=== PATIENT | male | born 1940 | race Caucasian/White ===

== ENCOUNTER 2020-02-16 19:13 | Emergency (ER) | payer MEDICARE, OTHER, SELFPAY ==
--- NOTE | ~2020-02-16 | XR_ITS ---
EXAMINATION: XR chest 1V portable INDICATION: Edema, history of CVA TECHNIQUE: Portable AP chest at 1959 hours COMPARISON: None available FINDINGS: Cardiomegaly is noted. Diffuse interstitial and airspace opacities are present. There is el evation of the right hemidiaphragm. No pleural effusion or pneumothorax is identified. 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 IMPRESSION: 1. Cardiomegaly. 2. Diffuse lung disease which could reflect pneumonia and/or pulmonary edema. Reviewed, dictated and finalized at location A. TECH
[2020-02-16 19:14] VITALS: BP 125/73; PULSE 70; RESP 12; TEMP 36.4; O2SAT 97
--- NOTE | 2020-02-16 19:27 | PC.NURSE ---
hakan rn got ring off patients finger at this time. pt ring placed in blue bag and placed on pts clothes.
[2020-02-16 20:00] LABS: Basophils Percent Auto 0.4 % (0.2-1.2); Eosinophils Absolute Auto 0.3 K/mm3 (0-0.3); Eosinophils Percent Auto 3.8 % (0-4.4); Hematocrit 35.8 % (42.0-52.0); Hemoglobin 11.9 g/dL (14.0-18.0); Immature Granulocyte Absolute 0.03 K/mm3 (0.00-0.031); Immature Granulocyte Percent A 0.4 % (0-0.5); Lymphocytes Absolute Auto 1.15 K/mm3 (0.9-3.2); Lymphocytes Percent Auto 15.5 % (18.3-44.2); Mean Corpuscular HGB Conc 33.2 g/dl (32-36); Mean Corpuscular Hemoglobin 30.2 pg (26-34); Mean Corpuscular Volume 90.9 fl (80-100); Mean Platelet Volume 10.7 fl (7.4-10.4); Monocytes Absolute Auto 0.5 K/mm3 (0.1-0.6); Monocytes Percent Auto 6.1 % (2.6-8.5); Neutrophils Absolute Auto 5.5 K/mm3 (1.3-6.7); Neutrophils Percent Auto 73.8 % (45.5-73.1); Platelet Count Result 237 k/mm3 (150-375); Red Blood Count 3.94 M/mm3 (4.6-6.20); Red Cell Distribution Width 13.8 % (11.5-14.5); White Blood Count 7.4 K/mm3 (4.5-10.0)
--- NOTE | 2020-02-16 20:12 | ED.GENADULT ---
HPI - General Adult General Chief complaint: Extremity Problem,Nontraumatic Stated complaint: extremity swelling Time Seen by Provider: 02/16/20 19:28 History of Present Illness HPI narrative: Patient is a 79-year-old male who presents ER with edema to his left upper extremity. Reports its been slowly swelling over the last few weeks. Patient suffered a stroke a couple months ago that left him with minimal use of his left upper extremity. He has no redness or pain to the extremity. He was concerned because his wedding ring is now stuck on his finger he feels like he needs it removed. 7 no chest pain or shortness of breath. No orthopnea. No other complaints. Related Data Home Medications Medication Instructions Recorded Confirmed atenolol 50 mg PO DAILY 02/16/20 02/16/20 docusate sodium 100 mg PO DAILY 02/16/20 02/16/20 donepezil 10 mg PO HS 02/16/20 02/16/20 finasteride 5 mg PO DAILY 02/16/20 02/16/20 furosemide 40 mg PO BID 02/16/20 02/16/20 hydralazine 50 mg PO QID 02/16/20 02/16/20 omeprazole 20 mg PO DAILY 02/16/20 02/16/20 polyethylene glycol ea MISCELLANEOUS 02/16/20 potassium chloride 20 meq PO DAILY 02/16/20 02/16/20 sertraline 50 mg PO DAILY 02/16/20 02/16/20 simvastatin 20 mg PO DAILY 02/16/20 02/16/20 tamsulosin 0.4 mg PO HS 02/16/20 02/16/20 warfarin 5 mg PO DAILY 02/16/20 02/16/20 Allergies Allergy/AdvReac Type Severity Reaction Status Date / Time No Known Allergies Allergy Verified 02/16/20 19:54 Review of Systems Review of Systems: All systems reviewed & are unremarkable except as noted in HPI and below Constitutional: Constitutional: Denies chills, Denies fever(s) and Denies weakness Cardiovascular: Cardiovascular: Denies chest pain Respiratory: Respiratory: Denies cough, Denies dyspnea and Denies wheezing Musculoskeletal: Musculoskeletal: Denies arthralgias, Denies joint swelling and Denies muscle cramps Comments: Arm swelling Neurologic: Denies numbness and Reports weakness PMF Past Medical History Medical History (Updated 02/16/20 @ 23:34 by Ayad Ruiz MD) Atrial fibrillation BPH (benign prostatic hyperplasia) CVA (cerebral vascular accident) H/O: hypertension Hyperlipidemia Surgical History Surgical History (Updated 02/16/20 @ 20:17 by Ayad Ruiz MD) History of hernia repair Social History Social History (Updated 02/16/20 @ 20:18 by Ayad Ruiz MD) Living arrangements: senior care Additional living arrangements comments: [facility] Exam Narrative: Exam Narrative: GENERAL: Well-appearing, well-nourished, and in no acute distress. HEAD: Normocephalic, atraumatic. CHEST: Clear to auscultation. No respiratory distress. HEART: Irregular regular rate and rhythm. Normal peripheral pulses. ABDOMEN: Soft, nontender. EXTREMITIES: 1+ edema LUE, 2+BLE, no edema in RUE. NO redness/tenderness LUE. Chronic venous stasis changes bilateral lower extremities. SKIN: Warm, dry, no rash. NEURO: Alert and oriented x3. PSYCH: Normal mood and affect. Course Course Emergency Course: Elevated D-dimer but therapeutic INR. Patient has no shortness of breath and normal lung sounds. He is not wanting to stay in the hospital for an ultrasound to rule out DVT which I think is appropriate given that he is being treated adequately and I feel his edema is likely related to immobility due to his paralysis. I discussed case with the physician at [facility] Dr. Segovia. He feels comfortable with patient going back to the facility and can arrange an outpatient ultrasound as needed. Vital Signs Vital signs: Vital Signs Temperature 97.6 F 02/16/20 19:14 Pulse Rate 70 02/16/20 19:14 Respiratory Rate 12 02/16/20 19:14 Blood Pressure 125/73 02/16/20 19:14 Pulse Oximetry 97 02/16/20 19:14 Temperature 97.6 F 02/16/20 19:14 Pulse Rate 70 02/16/20 22:11 Respiratory Rate 18 02/16/20 22:11 Blood Pressure 130/75 02/16/20 22:11 Pulse Oximetry 95
[2020-02-16 20:13] LABS: Alanine Aminotransferase 28 U/L (4-50); Albumin Level 3.7 g/dL (3.5-5.1); Alkaline Phosphatase 88 U/L (38-126); Anion Gap 8 mmol/L (8-16); Aspartate Amino Transferase 35 U/L (17-59); Bilirubin,Total 0.4 mg/dL (0.2-1.3); Blood Urea Nitrogen 24 mg/dL (9-20); Calcium 9.4 mg/dL (8.4-10.2); Carbon Dioxide 34 mmol/L (22-30); Chloride 96 mmol/L (98-107); Estimated CRCL calculation 68 ml/min; Estimated Glomerular Filt Rate > 60; Glucose 146 mg/dL (75-110); Potassium 3.5 mmol/L (3.4-5.0); Sodium 138 mmol/L (137-145)
[2020-02-16 20:37] LABS: NT Pro B Type Natriuretic Pept 2120 PG/ML (5-100)
[2020-02-16 20:38] LABS: INR 2.5; Prothrombin Time 27.5 Seconds (11.1-14.7)
[2020-02-16 20:39] LABS: Partial Thromboplastin Time 55.7 SECONDS (22.3-36.8)
[2020-02-16 20:48] VITALS: BP 129/65; PULSE 78; RESP 20; O2SAT 96
[2020-02-16 21:28] VITALS: BP 134/79; PULSE 73; RESP 18; O2SAT 96
[2020-02-16 22:11] VITALS: BP 130/75; PULSE 70; RESP 18; O2SAT 95
[2020-02-16 23:00] VITALS: BP 157/91; PULSE 67; RESP 16; O2SAT 96
[2020-02-16 23:37] VITALS: BP 159/90; PULSE 67; RESP 17; O2SAT 96
[2020-02-17 01:20] VITALS: BP 138/85; PULSE 60; RESP 18; O2SAT 99
== END 2020-02-17 01:21 ==
PROVIDERS: Emergency Provider Emergency Medicine; PCP Family Medicine
DX: R60.9 Edema, unspecified (principal); I48.91 Unspecified atrial fibrillation; I69.964 Other paralytic syndrome following unspecified cerebrovascular disease affecting left non-dominant side; N40.0 Benign prostatic hyperplasia without lower urinary tract symptoms; I10 Essential (primary) hypertension; E78.5 Hyperlipidemia, unspecified; Z79.01 Long term (current) use of anticoagulants; I51.7 Cardiomegaly; R91.8 Other nonspecific abnormal finding of lung field
CPT/HCPCS: 36415; 71045; 80048; 80076; 83880; 85025; 85380; 85610; 85730; 99283

== ENCOUNTER 2020-08-13 13:44 | Outpatient (CLI) | payer MEDICARE, OTHER, SELFPAY ==
--- NOTE | ~2020-08-13 | CT_ITS ---
EXAMINATION: CT abdomen pelvis wo/w con DATE: 08/13/2020 14:49 INDICATION: Renal mass TECHNIQUE: Computed tomography (CT) of the abdomen and pelvis was performed without and with 100 mL O mnipaque-350 intravenous contrast. Automated exposure control and iterative reconstruction technique were employed. The dose-length product was 3141.48 mGy-cm. COMPARISON: None FINDINGS: Chronic eventration of the right hemidiaphragm. Small calcified nodules in the right lower lobe along with calcified right hilar and mediastinal lymph nodes consistent with old granulomatous disease. No pneumonia, pulmonary edema, pleural effusion or pneumothorax. Heart size is normal. Atherosclerotic coronary artery calcifications. Aortic valve calcification. No pericardial or pleural effusion. Bilat eral gynecomastia. Small sliding-type hiatal hernia. Liver, gallbladder, spleen, pancreas and bilater al adrenal glands are normal. There are bilateral renal cysts, the largest a 6.6 cm low-attenuation nonenhancing cyst with thin per ipheral partial rim calcification. There is a 2.4 cm complex nonenhancing proteinaceous/hemorrhagic c yst at the mid left kidney with intermediate attenuation of 43 HU on the precontrast images which zhou sures 41 HU on the postcontrast images. There are a few additional bilateral subcentimeter low-attenu ation nonenhancing renal cysts. No enhancing renal lesions identified. Mild to moderate diverticulosi s with sigmoid predominance and without adjacent inflammatory stranding to suggest acute diverticulit is. Small bowel and appendix are normal. Bladder is normal. No free intraperitoneal gas or fluid. No pathologically enlarged thoracic, abdominal or pelvic lympha denopathy. There is calcified atherosclerosis of the normal caliber aorta and many of the other arter ies. Antegrade intramedullary julissa and dynamic femoral neck compression screw fixation at the proximal right femur. Moderate thoracolumbar spondylosis. There are bridging osteophytes at multiple levels i n the spine, consistent with diffuse idiopathic skeletal hyperostosis (DISH). IMPRESSION: 1. Renal cysts including bilateral Bosniak 2 cysts measuring 6.6 cm with thin peripheral rim enhancem ent in the right kidney and 2.4 cm nonenhancing intermediate attenuation proteinaceous/hemorrhagic cy st in the left kidney. 2. Diverticulosis. 3. Small sliding-type hiatal hernia. Reviewed, dictated and finalized at location A. IMPRESSION: 1. Renal cysts including bilateral Bosniak 2 cysts measuring 6.6 cm with thin p eripheral rim enhancement in the right kidney and 2.4 cm nonenhancing intermedi ate attenuation proteinaceous/hemorrhagic cyst in the left kidney. 2. Diverticulosis. 3. Small sliding-type hiatal hernia.
[2020-08-13 14:26] LABS: Estimated Glomerular Filt Rate 45
== END 2020-08-13 13:45 | disposition home or self-care (01) ==
PROVIDERS: PCP Family Medicine; Visit Provider Urology
DX: N28.89 Other specified disorders of kidney and ureter (principal); N28.1 Cyst of kidney, acquired; K57.90 Diverticulosis of intestine, part unspecified, without perforation or abscess without bleeding; K44.9 Diaphragmatic hernia without obstruction or gangrene
CPT/HCPCS: 74178; Q9967

== ENCOUNTER 2021-01-13 20:06 | Emergency (ER) | payer MEDICARE, OTHER, MEDICAID, SELFPAY ==
--- NOTE | ~2021-01-13 | CT_ITS ---
EXAMINATION: CT brain wo con EXAM DATE: 01/13/2021 20:44 INDICATION: Generalized weakness. History of stroke. TECHNIQUE: Spiral CT of the head was performed without contrast. Axial, coronal and sagittal images were reviewed. The dose-length product (DLP) for this examination was 605.33 mGy-cm. The exposure w as tailored according to patient size, and iterative reconstruction (ASIR) was used as additional dos e reduction technique. There is no prior study for comparison. FINDINGS: There is no acute intraparenchymal hemorrhage. No evidence of intraparenchymal brain mass lesion. No evidence of acute infarction. Please note that initial head CT has limited sensitivity f or small or acute infarctions. There is moderate-sized old right occipital lobe infarction. There i s mild periventricular and subcortical hypodensity, nonspecific but probably related to small vessel ischemic disease. There is moderate prominence of the sulci and ventricles related to cerebral atro phy. There is intracranial carotid arteriosclerosis. There are no extra-axial collections. There is no mass effect or midline shift. The orbits are unremarkable. Soft tissue is unremarkable. The visualized sinuses and mastoid air cells are well aerated. IMPRESSION: 1. Old moderate-sized right occipital lobe infarction.. 2. Chronic age related findings. Reviewed, dictated and finalized at location A. FACTURING TEST ENGINEER
[2021-01-13 20:07] VITALS: BP 106/73; PULSE 95; RESP 20; TEMP 36.8; O2SAT 94
--- NOTE | 2021-01-13 20:20 | ECG_ITS ---
Measurements Intervals [place] Rate: 94 P: [place]: 0 QRS: -40 QRSD: 169 T: 141 QT: 389 QTc: 487 Interpretive Statements ATRIAL FIBRILLATION LEFT AXIS DEVIATION LEFT BUNDLE BRANCH BLOCK BASELINE ARTIFACT- I, II, III, AVR, V1 ABNORMAL ECG Electronically Signed On 01-14-2021 5:53:05 TEAR DOWN WORKER by Ashish Mckenna D.O.
[2021-01-13 20:32] LABS: Basophils Percent Auto 0.4 % (0.2-1.2); Eosinophils Absolute Auto 0.1 K/mm3 (0-0.3); Hematocrit 42.9 % (42.0-52.0); Hemoglobin 14.6 g/dL (14.0-18.0); Immature Granulocyte Absolute 0.11 K/mm3 (0.00-0.031); Lymphocytes Percent Auto 10.5 % (18.3-44.2); Mean Corpuscular Hemoglobin 32.7 pg (26-34); Mean Corpuscular Volume 96.2 fl (80-100); Mean Platelet Volume 10.3 fl (7.4-10.4); Monocytes Percent Auto 9.4 % (2.6-8.5); Neutrophils Absolute Auto 8.1 K/mm3 (1.3-6.7); Neutrophils Percent Auto 77.7 % (45.5-73.1); Platelet Count Result 172 k/mm3 (150-375); Red Blood Count 4.46 M/mm3 (4.6-6.20); White Blood Count 10.5 K/mm3 (4.5-10.0)
--- NOTE | 2021-01-13 20:34 | PC.NURSE ---
Pt to CT via stretcher at this time.
[2021-01-13 20:44] LABS: Alanine Aminotransferase 17 U/L (4-50); Albumin Level 4.4 g/dL (3.5-5.1); Alkaline Phosphatase 72 U/L (38-126); Anion Gap 8 mmol/L (8-16); Aspartate Amino Transferase 24 U/L (17-59); Blood Urea Nitrogen 48 mg/dL (9-20); Calcium 9.9 mg/dL (8.4-10.2); Carbon Dioxide 28 mmol/L (22-30); Chloride 97 mmol/L (98-107); Estimated Glomerular Filt Rate 31; Glucose 142 mg/dL (65-110); Potassium 5.1 mmol/L (3.4-5.0); Sodium 133 mmol/L (137-145)
[2021-01-13 20:45] VITALS: BP 113/70; PULSE 93; RESP 20; O2SAT 94
[2021-01-13 21:00] LABS: Add Urine Microscopic? YES; Appearance Urine Cloudy (Clear); Bilirubin Urine Negative (Negative); Blood Urine Negative (Negative); Color Urine Yellow (Yellow); Glucose Urine UA Negative (Negative); Hyaline Casts Urine 15-19 /lpf; Ketones Urine Negative (Negative); Leukocyte Esterase Ur 1+ LEU/UL (Negative); Mucus Urine Rare /lpf; Nitrate Urine Negative (Negative); Protein Urine Negative (Negative); RBC Urine 0-2 /hpf (0-2); Specific Grav Ur 1.014 (1.001-1.035); Squamous Epithelial Cell Urine Occasional /hpf (Few); Urobilinogen Urine Negative mg/dL (<2.0)
[2021-01-13 21:58] VITALS: BP 107/65; PULSE 72; RESP 18; O2SAT 96
[2021-01-13 22:05] VITALS: BP 112/76
[2021-01-13 23:21] VITALS: BP 107/82; PULSE 72; RESP 20
--- NOTE | 2021-01-13 23:29 | ED.GENADULT ---
HPI - General Adult General Chief complaint: Weakness Stated complaint: weakness since 1700 Time Seen by Provider: 01/13/21 20:19 Source: patient Mode of arrival: EMS Limitations: no limitations History of Present Illness HPI narrative: 80-year-old with a history of CVA, hypertension Afib , wheelchair-bound custodial resident here with complaints of weakness. Patient states that he is leaning more onto the right side for past 1 week. He denies any headache, chest pain or shortness of breath. Onset (ago): week(s) (1) Exacerbating factors: none Associated symptoms: denies other symptoms Related Data Home Medications Medication Instructions Recorded Confirmed atenolol 50 mg PO DAILY 02/16/20 02/16/20 docusate sodium 100 mg PO DAILY 02/16/20 02/16/20 donepezil 10 mg PO HS 02/16/20 02/16/20 finasteride 5 mg PO DAILY 02/16/20 02/16/20 furosemide 40 mg PO BID 02/16/20 02/16/20 hydralazine 50 mg PO QID 02/16/20 02/16/20 omeprazole 20 mg PO DAILY 02/16/20 02/16/20 polyethylene glycol ea MISCELLANEOUS 02/16/20 potassium chloride 20 meq PO DAILY 02/16/20 02/16/20 sertraline 50 mg PO DAILY 02/16/20 02/16/20 simvastatin 20 mg PO DAILY 02/16/20 02/16/20 tamsulosin 0.4 mg PO HS 02/16/20 02/16/20 warfarin 5 mg PO DAILY 02/16/20 02/16/20 Allergies Allergy/AdvReac Type Severity Reaction Status Date / Time No Known Allergies Allergy Verified 02/16/20 19:54 Review of Systems Review of Systems: All systems reviewed & are unremarkable except as noted in HPI and below Constitutional: Constitutional: Reports no additional constitutional complaints Eyes: Eyes: Reports no additional eye complaints ENT: Reports system reviewed and no additional complaints, except as documented Cardiovascular: Cardiovascular: Reports no additional cardiovascular complaints Respiratory: Respiratory: Reports no additional respiratory complaints Gastrointestinal: Gastrointestinal: Reports no additional gastrointestinal complaints Musculoskeletal: Musculoskeletal: Reports no additional musculoskeletal complaints PMFSH Past Medical History Medical History Atrial fibrillation BPH (benign prostatic hyperplasia) CVA (cerebral vascular accident) H/O: hypertension Hyperlipidemia Surgical History Surgical History History of hernia repair Social History Social History Additional living arrangements comments: [facility] Course Course Emergency Course: Inform patient and the son who is at bedside about his lab work, CT findings. As his symptoms are ongoing. Patient should be returned to the custodial. I discussed with Dr. Sudha Freeman about his lab work and CT findings. Patient can be returned to the custodial. Vital Signs Vital signs: Vital Signs Temperature 36.8 C 01/13/21 20:07 Pulse Rate 95 01/13/21 20:07 Respiratory Rate 20 01/13/21 20:07 Blood Pressure 106/73 01/13/21 20:07 Pulse Oximetry 94 01/13/21 20:07 Temperature 36.8 C 01/13/21 20:07 Pulse Rate 72 01/13/21 23:21 Respiratory Rate 20 01/13/21 23:21 Blood Pressure 107/82 01/13/21 23:21 Pulse Oximetry 96 01/13/21 21:58 Medical Decision Making Vital Signs Vital Signs: Vital Signs Temperature 36.8 C 01/13/21 20:07 Pulse Rate 95 01/13/21 20:07 Respiratory Rate 20 01/13/21 20:07 Blood Pressure 106/73 01/13/21 20:07 Pulse Oximetry 94 01/13/21 20:07 Temperature 36.8 C 01/13/21 20:07 Pulse Rate 72 01/13/21 23:21 Respiratory Rate 20 01/13/21 23:21 Blood Pressure 107/82 01/13/21 23:21 Pulse Oximetry 96 01/13/21 21:58 Lab Data Result diagrams: 01/13/21 20:26 01/13/21 20:26 Labs: Lab Results 01/13/21 01/13/21 01/13/21 Range/Units 20:26 20:26 20:45 WBC 10.5 H (4.5-10.0) K/mm3 RBC 4.46 L (4.6-
--- NOTE | 2021-01-13 23:56 | PC.NURSE ---
called [facility] to request transport. ETA [id number]
--- NOTE | 2021-01-13 23:58 | PC.NURSE ---
called [facility] to request transport. declined
--- NOTE | 2021-01-13 23:59 | PC.NURSE ---
called [facility] to request tranport. No BLS transfer truck on tonight.
--- NOTE | 2021-01-14 | PC.NURSE ---
called [facility] to request transport. declined - no truck
[2021-01-14 01:23] VITALS: BP 112/79; PULSE 76; RESP 14; O2SAT 95
--- NOTE | 2021-01-14 02:46 | PC.NURSE ---
[facility] here.
--- NOTE | 2021-01-14 02:58 | PC.NURSE ---
[facility] arrived to transport pt, report given. Pt alert and upright on stretcher during transport out of ED.
[2021-01-14 02:59] VITALS: BP 108/73; PULSE 71; RESP 17; O2SAT 94
== END 2021-01-14 02:59 ==
PROVIDERS: Emergency Provider Family Medicine; PCP Internal Medicine
DX: R53.1 Weakness (principal); I48.91 Unspecified atrial fibrillation; N40.0 Benign prostatic hyperplasia without lower urinary tract symptoms; Z86.73 Personal history of transient ischemic attack (TIA), and cerebral infarction without residual deficits; I10 Essential (primary) hypertension; E78.5 Hyperlipidemia, unspecified
CPT/HCPCS: 36415; 70450; 80053; 81001; 85025; 87086; 87088; 93005; 99284

== ENCOUNTER 2022-02-13 12:31 | Emergency (ER) | payer MEDICARE, OTHER, MEDICAID, SELFPAY ==
[2022-02-13] VITALS (23 sets, daily range): BP systolic 82–118; BP diastolic 52–70; PULSE 60–82; RESP 13–23; TEMP 36.9; O2SAT 93–100
--- NOTE | ~2022-02-13 | XR_ITS ---
EXAMINATION: XR chest 1V portable DATE: 02/13/2022 12:59 INDICATION: Cough. Shortness of breath. TECHNIQUE: A single frontal view of the chest was obtained on 2 radiographs. COMPARISON: Chest radiograph 02/16/2020, CT abdomen and pelvis 08/13/2020 FINDINGS: There is chronic mild elevation of right hemidiaphragm. No pneumonia, pleural effusion, or pneumothorax. The heart size is normal. Calcified right hilar lymph nodes are consistent with old gra nulomatous disease. IMPRESSION: 1. Chronic mild elevation of right hemidiaphragm. Reviewed, dictated and finalized at location A. ATRIC FOOT AND ANKLE SPECIALIST
--- NOTE | 2022-02-13 12:47 | ECG_ITS ---
Measurements Intervals [place] Rate: 63 P: [place]: 0 QRS: -46 QRSD: 158 T: 120 QT: 433 QTc: 447 Interpretive Statements ATRIAL FIBRILLATION LEFT BUNDLE BRANCH BLOCK [120+ ms QRS DURATION, 80+ ms Q/S IN V1/V2, 85+ ms R IN I/aVL/V5/V6] COMPARED TO ECG 01/13/2021 20:24:22 NO CHANGE Electronically Signed On 02-14-2022 6:16:39 BANKER MASON by Osman Mello M.D.
--- NOTE | 2022-02-13 12:48 | ED.GENADULT ---
HPI - General Adult General Chief complaint: Unspecified Stated complaint: COUGH Time Seen by Provider: 02/13/22 12:33 History of Present Illness HPI narrative: Patient is an 81-year-old male with a history of A. fib on warfarin, CVA with left-sided hemiparesis, hyperlipidemia, hypertension presenting with generalized weakness. Patient is a somewhat poor historian but currently he complains of generalized weakness. States he feels tired. States he has been coughing for the last day or 2. Patient resides in a nursing facility and today was noted to have several episodes of apnea while awake so EMS was called. EMS found him to be hypotensive in the 80s over 60s. He started fluids but patient continues to have hypotensive readings in the 80s over 60s. Patient denies headache, new numbness or focal weakness, chest pain, shortness of breath, abdominal pain, nausea. Related Data Home Medications Medication Instructions Recorded Confirmed atenolol 50 mg tablet 50 mg PO DAILY 02/16/20 02/16/20 docusate sodium 100 mg capsule 100 mg PO DAILY 02/16/20 02/16/20 donepezil 10 mg tablet 10 mg PO HS 02/16/20 02/16/20 finasteride 5 mg tablet 5 mg PO DAILY 02/16/20 02/16/20 furosemide 40 mg tablet 40 mg PO BID 02/16/20 02/16/20 hydralazine 50 mg tablet 50 mg PO QID 02/16/20 02/16/20 omeprazole 20 mg capsule,delayed 20 mg PO DAILY 02/16/20 02/16/20 release polyethylene glycol ea miscellaneous 02/16/20 potassium chloride 20 mEq 20 meq PO DAILY 02/16/20 02/16/20 tablet,extended release sertraline 50 mg tablet 50 mg PO DAILY 02/16/20 02/16/20 simvastatin 20 mg tablet 20 mg PO DAILY 02/16/20 02/16/20 tamsulosin 0.4 mg capsule 0.4 mg PO HS 02/16/20 02/16/20 warfarin 5 mg tablet 5 mg PO DAILY 02/16/20 02/16/20 Allergies Allergy/AdvReac Type Severity Reaction Status Date / Time No Known Allergies Allergy Verified 01/14/21 02:40 Review of Systems Review of Systems: All systems reviewed & are unremarkable except as noted in HPI and below PMFSH Past Medical History Medical History Atrial fibrillation BPH (benign prostatic hyperplasia) CVA (cerebral vascular accident) H/O: hypertension Hyperlipidemia Surgical History Surgical History History of hernia repair Social History Social History Additional living arrangements comments: [facility] Exam Narrative: GENERAL: Chronically ill-appearing but in no acute distress HEAD: Normocephalic, atraumatic. EYES: PERRLA and EOMI. ENT: Nares clear, no rhinorrhea or epistaxis. Mucous membranes dry NECK: Supple. CHEST: Clear to auscultation. No respiratory distress. HEART: Regular rate, irregular rhythm. No murmur heard. Normal peripheral pulses. ABDOMEN: Soft, nontender, nondistended, normal active bowel sounds. EXTREMITIES: Normal range of motion. Pitting edema bilateral lower extremities with skin changes consistent with chronic venous stasis SKIN: Warm, chronic venous skin changes NEURO: left sided weakness which is at patients baseline. Alert and oriented x2. PSYCH: Normal mood and affect. Course Vital Signs Vital signs: Vital Signs Pulse Oximetry 95 02/13/22 12:28 Oxygen Delivery Room Air 02/13/22 12:28 Temperature 98.4 F 02/13/22 19:03 Pulse Rate 74 02/13/22 19:03 Respiratory Rate 18 02/13/22 19:03 Blood Pressure 118/70 02/13/22 19:03 Pulse Oximetry 99 02/13/22 19:03 Oxygen Delivery Room Air 02/13/22 12:32 Medical Decision Making [facility] Narrative Medical decision making narrative: Patient is an 81-year-old male presenting with generalized weakness and hypotension. Here his blood pressure is 87/52. Fluids are ongoing. Vitals are otherwise within normal limits. EKG per my interpretation shows atrial fibrillation, rate controlled, rare PVC, no ST elevations or depression
[2022-02-13] MEDS: SODIUM CHLORIDE 0.9% IV 1,000 ML 999 ML IV CONT (13:00)
[2022-02-13 13:33] LABS: Basophils Percent Auto 0.4 % (0.2-1.2); Eosinophils Absolute Auto 0.1 K/mm3 (0-0.3); Hematocrit 38.6 % (42.0-52.0); Hemoglobin 12.4 g/dL (14.0-18.0); Immature Granulocyte Absolute 0.07 K/mm3 (0.00-0.031); Immature Granulocyte Percent A 0.9 % (0-0.5); Lymphocytes Absolute Auto 1.04 K/mm3 (0.9-3.2); Lymphocytes Percent Auto 13.4 % (18.3-44.2); Mean Corpuscular HGB Conc 32.1 g/dl (32-36); Mean Corpuscular Hemoglobin 33.6 pg (26-34); Mean Corpuscular Volume 104.6 fl (80-100); Mean Platelet Volume 10.9 fl (7.4-10.4); Monocytes Absolute Auto 1.2 K/mm3 (0.1-0.6); Monocytes Percent Auto 15.1 % (2.6-8.5); Neutrophils Absolute Auto 5.4 K/mm3 (1.3-6.7); Neutrophils Percent Auto 69.2 % (45.5-73.1); Platelet Count Result 166 k/mm3 (150-375); Red Blood Count 3.69 M/mm3 (4.6-6.20); Red Cell Distribution Width 15.8 % (11.5-14.5); White Blood Count 7.8 K/mm3 (4.5-10.0)
[2022-02-13 13:45] LABS: Appearance Urine Clear (Clear); Bilirubin Urine 1+ (Negative); Blood Urine Negative (Negative); Color Urine Yellow (Yellow); Glucose Urine UA Negative (Negative); Ketones Urine Negative (Negative); Leukocyte Esterase Ur Negative LEU/UL (Negative); Nitrate Urine Negative (Negative); Protein Urine Negative (Negative); Specific Grav Ur 1.015 (1.001-1.035); Urobilinogen Urine 0.2 mg/dL (<2.0)
[2022-02-13 13:47] LABS: Alanine Aminotransferase 14 U/L (6-50); Albumin Level 3.8 g/dL (3.5-5.1); Alkaline Phosphatase 57 U/L (38-126); Anion Gap 7 mmol/L (8-16); Aspartate Amino Transferase 19 U/L (17-59); Bilirubin,Total 0.7 mg/dL (0.2-1.3); Blood Urea Nitrogen 60 mg/dL (9-20); Calcium 9.4 mg/dL (8.4-10.2); Carbon Dioxide 26 mmol/L (22-30); Chloride 99 mmol/L (98-107); Estimated Glomerular Filt Rate 29; Glucose 94 mg/dL (65-110); INR 1.8; Lipase 58 U/L (23-300); Partial Thromboplastin Time 43.6 SECONDS (22.3-36.8); Potassium 5.1 mmol/L (3.4-5.0); Prothrombin Time 19.8 Seconds (11.1-14.7); Sodium 132 mmol/L (137-145)
[2022-02-13 13:48] LABS: Lactic Acid Reflex 1.5 mmol/L (0.7-2.0)
[2022-02-13 13:52] LABS: Hyaline Casts Urine 30-49 /lpf; Mucus Urine Rare /lpf; RBC Urine 0-2 /hpf (0-2); Squamous Epithelial Cell Urine Occasional /hpf (Few); WBC Urine 0-3 /hpf
[2022-02-13 13:54] LABS: Add Urine Microscopic? YES
[2022-02-13 13:59] LABS: NT Pro B Type Natriuretic Pept 3170 pg/mL (5-100); Troponin I 0.016 ng/mL (0.000-0.034)
[2022-02-13 14:25] LABS: Influenza A QL RT-PCR Negative (Negative); Influenza B QL RT-PCR Negative (Negative); RSV RNA, RT-PCR Negative (Negative); SARS-CoV-2 RNA PCR Negative
[2022-02-13] MEDS: SODIUM CHLORIDE 0.9% IV 500 ML 999 ML IV CONT (15:27)
[2022-02-13 17:41] LABS: Troponin I 0.014 ng/mL (0.000-0.034)
== END 2022-02-13 19:18 ==
PROVIDERS: Emergency Provider Emergency Medicine; PCP Internal Medicine
DX: E86.0 Dehydration (principal); Z20.822 Contact with and (suspected) exposure to COVID-19; I48.91 Unspecified atrial fibrillation; I69.954 Hemiplegia and hemiparesis following unspecified cerebrovascular disease affecting left non-dominant side; E78.5 Hyperlipidemia, unspecified; I10 Essential (primary) hypertension; N40.0 Benign prostatic hyperplasia without lower urinary tract symptoms; I44.7 Left bundle-branch block, unspecified; Z79.01 Long term (current) use of anticoagulants
CPT/HCPCS: 36415; 51701; 71045; 80053; 81001; 83605; 83690; 83880; 84484; 85025; 85610; 85730; 87040; 87147; 87181; 87186; 87637; 93005; 96360; 96361; 99284; J7030; J7040

== ENCOUNTER 2022-03-17 11:44 | Emergency (ER) | payer MEDICARE, MEDICAID, SELFPAY ==
[2022-03-17] VITALS (10 sets, daily range): BP systolic 82–98; BP diastolic 55–74; PULSE 62–84; RESP 10–16; TEMP 37; O2SAT 99–100
--- NOTE | ~2022-03-17 | XR_ITS ---
EXAMINATION: XR chest 2V DATE: 03/17/2022 12:35 INDICATION: Chest pain. Irregular pulses. Normal EKG. TECHNIQUE: frontal and lateral views of the chest were obtained. COMPARISON: Chest radiograph dated 02/13/22 FINDINGS: Chronic elevation the right hemidiaphragm. No focal airspace opacities, pulmonary edema, pleural effu emma or pneumothorax. Calcified right hilar lymph nodes consistent with old granulomatous disease. Th e cardiomediastinal silhouette is within normal limits accounting for AP technique and slight rightwa rd rotation. IMPRESSION: 1. Chronic elevation the right hemidiaphragm. No acute cardiopulmonary disease. Reviewed, dictated and finalized at location A. NSING MANAGER
--- NOTE | 2022-03-17 11:49 | ECG_ITS ---
Measurements Intervals [place] Rate: 88 P: [place]: 0 QRS: -49 QRSD: 156 T: 127 QT: 404 QTc: 491 Interpretive Statements ATRIAL FIBRILLATION VENTRICULAR PREMATURE COMPLEXES LEFT AXIS DEVIATION LEFT BUNDLE BRANCH BLOCK BASELINE ARTIFACT- I, II, III, AVR, AVL ABNORMAL ECG COMPARED TO ECG 02/13/2022 12:38:54 NO SIGNIFICANT CHANGES Electronically Signed On 03-17-2022 12:56:16 SUPERVISOR ADVICE by Ashish Mckenna D.O.
[2022-03-17 12:20] LABS: Basophils Absolute Auto 0.1 K/mm3 (0.0-0.1); Basophils Percent Auto 0.3 % (0.2-1.2); Eosinophils Absolute Auto 0.2 K/mm3 (0-0.3); Eosinophils Percent Auto 1.1 % (0-4.4); Hematocrit 31.2 % (42.0-52.0); Hemoglobin 10.1 g/dL (14.0-18.0); Immature Granulocyte Absolute 0.67 K/mm3 (0.00-0.031); Immature Granulocyte Percent A 4.5 % (0-0.5); Lymphocytes Absolute Auto 1.33 K/mm3 (0.9-3.2); Lymphocytes Percent Auto 8.9 % (18.3-44.2); Mean Corpuscular HGB Conc 32.4 g/dl (32-36); Mean Corpuscular Hemoglobin 33.6 pg (26-34); Mean Corpuscular Volume 103.7 fl (80-100); Mean Platelet Volume 10.3 fl (7.4-10.4); Monocytes Absolute Auto 1.5 K/mm3 (0.1-0.6); Monocytes Percent Auto 10.1 % (2.6-8.5); Neutrophils Absolute Auto 11.3 K/mm3 (1.3-6.7); Neutrophils Percent Auto 75.1 % (45.5-73.1); Nucleated Red Blood Cells Perc 0.1 % (0.0-0.2); Platelet Count Result 312 k/mm3 (150-375); Red Blood Count 3.01 M/mm3 (4.6-6.20); Red Cell Distribution Width 15.9 % (11.5-14.5)
[2022-03-17 12:31] LABS: Alanine Aminotransferase 19 U/L (6-50); Albumin Level 2.9 g/dL (3.5-5.1); Alkaline Phosphatase 67 U/L (38-126); Anion Gap 6 mmol/L (8-16); Aspartate Amino Transferase 24 U/L (17-59); Bilirubin,Total 0.6 mg/dL (0.2-1.3); Blood Urea Nitrogen 71 mg/dL (9-20); Calcium 8.3 mg/dL (8.4-10.2); Carbon Dioxide 18 mmol/L (22-30); Chloride 107 mmol/L (98-107); Estimated CRCL calculation 36 ml/min; Estimated Glomerular Filt Rate 34; Glucose 107 mg/dL (65-110); INR 2.1; Lipase 59 U/L (23-300); Potassium 5.6 mmol/L (3.4-5.0); Prothrombin Time 22.4 Seconds (11.1-14.7); Sodium 131 mmol/L (137-145)
[2022-03-17 12:32] LABS: Partial Thromboplastin Time 44.1 SECONDS (22.3-36.8)
[2022-03-17 12:43] LABS: Troponin I < 0.012 ng/mL (0.000-0.034)
--- NOTE | 2022-03-17 12:51 | ED.ARRPALP ---
HPI - Arrhythmia/Palpitations General Chief Complaint: Arrhythmia/Palpitations Stated Complaint: abnormal ekg Time Seen by Provider: 03/17/22 12:33 History of Present Illness HPI narrative: Pt sent from local [place] for concern about having heart attack or irregular heart beat per NH report. Pt has dementia and cannot provide a history. Pt has a history of a fib. Pt family at bedside and provide most of the history. They are not sure about CP or duration of CP. They were told by NH that they were concerned about him having a heart attack. The family is currently trying to get him on hospice but the process is not complete yet. Family is fine with ordering labs and running some baseline tests and providing reasonable treatment but does not want any heroic measures to prolong his life. Pt has chronic sacral decubitus ulcers as well and recurring LE cellulitis. Related Data Home Medications Medication Instructions Recorded Confirmed atenolol 50 mg tablet 50 mg PO DAILY 02/16/20 02/16/20 docusate sodium 100 mg capsule 100 mg PO DAILY 02/16/20 02/16/20 donepezil 10 mg tablet 10 mg PO HS 02/16/20 02/16/20 finasteride 5 mg tablet 5 mg PO DAILY 02/16/20 02/16/20 furosemide 40 mg tablet 40 mg PO BID 02/16/20 02/16/20 hydralazine 50 mg tablet 50 mg PO QID 02/16/20 02/16/20 omeprazole 20 mg capsule,delayed 20 mg PO DAILY 02/16/20 02/16/20 release polyethylene glycol ea miscellaneous 02/16/20 potassium chloride 20 mEq 20 meq PO DAILY 02/16/20 02/16/20 tablet,extended release sertraline 50 mg tablet 50 mg PO DAILY 02/16/20 02/16/20 simvastatin 20 mg tablet 20 mg PO DAILY 02/16/20 02/16/20 tamsulosin 0.4 mg capsule 0.4 mg PO HS 02/16/20 02/16/20 warfarin 5 mg tablet 5 mg PO DAILY 02/16/20 02/16/20 Allergies Allergy/AdvReac Type Severity Reaction Status Date / Time No Known Allergies Allergy Verified 01/14/21 02:40 Review of Systems Review of Systems: ROS unobtainable: Yes unobtainable due to mental status PMFSH Past Medical History Medical History Atrial fibrillation BPH (benign prostatic hyperplasia) CVA (cerebral vascular accident) H/O: hypertension Hyperlipidemia Surgical History Surgical History History of hernia repair Social History Social History Additional living arrangements comments: [facility] Exam Const: General: no acute distress Nutritional Appearance: obese Limitations: altered mental status (demented, keeps calling out for help even when family and staff present.) HENMT: Head: normal to inspection Mouth: Yes Abnormal oral and palatal mucosa present (dry) Chest: Chest palpation & inspection: normal inspection of the chest Resp: Effort & Inspection: normal respiratory effort Auscultation: clear to auscultation bilaterally Cardio: Rate: regular rate (88) Rhythm: abnormal rhythm irregularly irregular GI: Auscultation: normal bowel sounds Skin: Other: chronic brawny changes to LE with mild edema, decubitus scaral ulcers Neuro: General: moves all extremities and no focal motor deficits Cranial nerves: Yes Nystagmus not present Extrem: General: edema Psych: Attitude: cooperative (confused) Course Course Emergency Course: Pt BP was a little soft, had most of a liter in ordered a second liter of IVF which improved BP, Pt has UTI and is likely septic as BP dropped again after second liter of IV NS. Had discussion with family. They want to talk to other siblings and may want to put patient on hospice and hold any treatment and keep him comfortable. Will hold further BP management and IV antibiotics for now. Family understands that he will likely pass away if not treated. Family after discussion with Client Business Manager has decided they want him on comfort measure only and will not treat his UTI/Sepsis. We will send back to
[2022-03-17] MEDS: SODIUM CHLORIDE 0.9% IV 1,000 ML 999 ML IV CONT (13:15)
[2022-03-17 13:47] LABS: Lactic Acid Reflex 1.3 mmol/L (0.7-2.0)
--- NOTE | 2022-03-17 14:37 | PCCCNOTE ---
Phone call received from Rose at [facility]. Rose states that patient is from [facility] and his son is working to get him admitted to hospice. Rose able to provide pt's for verification. Rose requests facesheet and ER note for review. Fax'd as requested to [phone]
[2022-03-17 15:13] LABS: Appearance Urine Slightly Cloudy (Clear); Bilirubin Urine Negative (Negative); Blood Urine 2+ (Negative); Color Urine Yellow (Yellow); Glucose Urine UA Negative (Negative); Ketones Urine Negative (Negative); Leukocyte Esterase Ur 3+ LEU/UL (Negative); Nitrate Urine Negative (Negative); Protein Urine 1+ mg/dL (Negative); Specific Grav Ur 1.015 (1.001-1.035); Urobilinogen Urine 0.2 mg/dL (<2.0); pH Urine 7.5 (5.0-9.0)
[2022-03-17 15:17] LABS: Bacteria Urine 1+ /hpf; Mucus Urine Rare /lpf; WBC Urine >75 /hpf
[2022-03-17 15:18] LABS: Add Urine Microscopic? YES
[2022-03-17 15:34] LABS: Troponin I < 0.012 ng/mL (0.000-0.034)
--- NOTE | 2022-03-17 16:49 | PCCCNOTE ---
Phone call received by ED charge, Razia at 1530 to meet with family about hospice. Met with pt's family in the family services room. Son Israel and Daughter Razia and their spouses. 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 Advised that this pharmacist critical care was called by [facility], per family they are not contracted with them so it will take awhile to get it set up. Per family would like to move forward with hospice and avoid delay. Called to [facility] s/w Kiesha, per Kiesha they have a current contract w/ [facility] but if they family would like [facility], it is possible but may take longer to get the contract. Healthcare POA paperwork received and placed on chart. Advised to Israel, pt's son that they have a current contract with [facility] but per Kiesha at [facility] they can most likely do [facility] [place] but will take longer. Israel would like this pharmacist critical care to contact Philip. Called to [facility] hospice s/w intake, Fax'd referral and received a call back. Rehana states that they have spoke with Israel and will be here at 5:30 to meet with family.
[2022-03-17] MEDS: fentaNYL CITRATE INJ (*CRX) 100 MCG/2 ML VIAL 50 MCG IV PUSH ×2 (17:29→19:10)
--- NOTE | 2022-03-17 19:15 | PCCCNOTE ---
Family meeting completed with Sharri MCCRACKEN from [facility]. Refax'd order as requested from Sharri. Updated Carmen Frey/[facility] community cultural development officer to work on ambulance transport. Sharri called [facility] to update of return with hospice tonight.
--- NOTE | 2022-03-17 19:17 | PC.NURSE ---
Report given to [facility] Nurse pt returning to [place] on Hospice.
== END 2022-03-17 20:01 | disposition hospice, home (50) ==
PROVIDERS: Emergency Medicine; Emergency Provider Emergency Medicine; PCP Internal Medicine
DX: A41.9 Sepsis, unspecified organism (principal); N39.0 Urinary tract infection, site not specified; I95.9 Hypotension, unspecified; I48.91 Unspecified atrial fibrillation; I10 Essential (primary) hypertension; E78.5 Hyperlipidemia, unspecified; N40.0 Benign prostatic hyperplasia without lower urinary tract symptoms; Z86.73 Personal history of transient ischemic attack (TIA), and cerebral infarction without residual deficits; Z79.01 Long term (current) use of anticoagulants; I49.3 Ventricular premature depolarization; I44.7 Left bundle-branch block, unspecified
CPT/HCPCS: 36415; 71046; 80053; 81001; 83605; 83690; 84484; 85025; 85610; 85730; 87077; 87086; 87186; 93005; 96374; 96376; 99284; J3010; J7030